=== PATIENT | male | born 1980 | race African-American/Black ===

== ENCOUNTER 2018-08-31 19:18 | Emergency (ER) | payer OTHER ==
[2018-08-31] MEDS ORDERED: Acetaminophen 500 MG TAB ONE (20:17)
--- NOTE | 2018-08-31 21:13 | RAD ---
TWO VIEWS OF THE LEFT HIP 08/31/18 COMPARISON: None. HISTORY: Fall, tenderness. FINDINGS: There is no evidence for dislocation. No obvious acute fracture is seen. Assessment for acute fractur e is somewhat limited as there is extensive postoperative hardware within the left hemipelvis/acetabu lum and there are multiple corticated fracture fragments and heterotopic bone associated with a prior fracture lateral to the acetabulum and proximal to the greater trochanter on the left. IMPRESSION: Postoperative and remote posttraumatic change. No definite acute fracture or dislocation is appreciat ed. Followup cross-sectional imaging may be beneficial if the patient is unable to bear weight or sig nificant symptoms persists. POS: [facility]
--- NOTE | 2018-08-31 21:47 | CT ---
HEAD CT WITHOUT CONTRAST: 08/31/18 COMPARISON: None. HISTORY: Head injury, trauma, fall. TECHNIQUE: Axial CT imaging at 5 mm intervals from vertex through skull base without contrast. FINDINGS: The imaged paranasal sinuses/mastoid air cells are well aerated. No displaced calvarial fracture. The re is no intracranial hemorrhage, midline shift, mass effect or ventricular enlargement. IMPRESSION: No acute findings. POS: [facility]
--- NOTE | 2018-08-31 22:19 | CT ---
CT CERVICAL SPINE 08/31/18 COMPARISON: None. HISTORY: Fall, trauma, pain. TECHNIQUE: Axial CT imaging at 2.5 millimeter intervals from the skull base through lung apices without contrast . Coronal and sagittal reformatted imaging obtained. FINDINGS: There appear to be old bilateral nasal bone fractures. There is also an old fracture involving the an terior wall of the right maxillary sinus. There is an old fracture of the medial orbital wall on the left. The C1 ring appears intact. The occipital condyles, the dens, and the C1-2 articulation appear within normal limits. The C1 ring is intact. The craniocervical junction and the cervicothoracic junction is intact. Cervical vertebra l body height and alignment is grossly unremarkable. No prevertebral soft tissue swelling No displaced fracture or evidence of dislocation seen. IMPRESSION: No acute osseous abnormality. POS: [facility]
== END 2018-08-31 22:35 ==
LOC: ERS 19:18
DX: S09.90XA Unspecified injury of head, initial encounter (principal); M25.552 Pain in left hip; F17.210 Nicotine dependence, cigarettes, uncomplicated; W06.XXXA Fall from bed, initial encounter
CPT/HCPCS: 70450; 72125